=== PATIENT | female | born 1985 | race Caucasian/White ===

== ENCOUNTER 2017-05-27 11:52 | Emergency (ER) | payer OTHER ==
[2017-05-27 12:06] VITALS: BP 137/78
[2017-05-27] MEDS ORDERED: predniSONE TAB* 20 MG PO ONE (12:15)
--- NOTE | 2017-05-27 12:28 | UC ---
Throat Pain/Nasal Van HPI - HPI Summary HPI Summary: 32 yo female with sore throat and swollen glands x 1 day f/c and myalgias no n/v/d no true PCN allergy....states she gets yeast infections with augmentin - History of Current Complaint Chief Complaint: UCRespiratory Stated Complaint: SORE THROAT ACHY Time Seen by Provider: 05/27/17 12:04 Hx Obtained From: Patient Hx Last Menstrual Period: this month Onset/Duration: Gradual Onset, Lasting Hours Severity: Moderate Pain Intensity: 6 Pain Scale Used: 0-10 Numeric Cough: None - Epiglottits Risk Factors Epiglottis Risk Factors: Negative - Allergies/Home Medications Allergies/Adverse Reactions: Allergies Allergy/AdvReac Type Severity Reaction Status Date / Time Amoxicillin [From Augmentin] AdvReac yeast Verified 05/27/17 12:06 infection Clavulanic Acid AdvReac yeast Verified 05/27/17 12:06 [From Augmentin] infection PMH/Surg Hx/FS Hx/Imm Hx Previously Healthy: Yes - Surgical History Surgical History: Yes Surgery Procedure, Year, and Place: wisdom teeth - Family History Known Family History: Positive: Diabetes Negative: Cardiac Disease, Hypertension - Social History Alcohol Use: Occasionally Substance Use Type: None Smoking Status (MU): Never Smoked Tobacco - Immunization History Most Recent Influenza Vaccination: none Review of Systems Constitutional: Fever, Chills Skin: Negative Eyes: Negative ENT: Sore Throat Respiratory: Negative Cardiovascular: Negative Gastrointestinal: Negative Genitourinary: Negative Motor: Negative Neurovascular: Negative Musculoskeletal: Myalgia Neurological: Negative Psychological: Negative All Other Systems Reviewed And Are Negative: Yes Physical Exam Triage Information Reviewed: Yes Appearance: Well-Appearing, No Pain Distress, Well-Nourished Vital Signs: Initial Vital Signs Temp 97.9 F 05/27/17 11:59 Pulse 87 05/27/17 11:59 Resp 18 05/27/17 11:59 BP 137/78 05/27/17 11:59 Vital Signs Reviewed: Yes Eyes: Positive: Conjunctiva Clear ENT: Positive: Pharyngeal erythema, TMs normal, Tonsillar exudate. Negative: Hearing grossly normal, Nasal congestion, Nasal drainage, Trismus, Muffled/ hoarse voice Neck: Positive: Supple, Tenderness @ - ant cervical nodes, Enlarged Nodes @ Respiratory: Positive: Lungs clear, Normal breath sounds, No respiratory distress, No accessory muscle use Cardiovascular: Positive: RRR, No Murmur Neurological: Positive: Alert, Muscle Tone Normal Psychological Exam: Normal Skin Exam: Normal Skin: Positive: rashes Throat Pain/Nasal Course/Dx - Differential Dx/Diagnosis Provider Diagnoses: exudative tonsillitis Discharge - Discharge Plan Condition: Stable Disposition: HOME Prescriptions: Cephalexin CAP* [Keflex CAP*] 500 mg PO BID #20 cap Prednisone 60 mg PO DAILY #6 tab Patient Education Materials: Tonsillitis (ED) Forms: *Work Release Referrals: Sylvia Ortega MD [Medical Doctor] - Additional Instructions: your strep test was negative you need to get rechecked in 3 days if not better
== END 2017-05-27 12:46 | disposition home or self-care (01) ==
LOC: UCCORT 11:52
DX: J03.90 Acute tonsillitis, unspecified (principal); Z88.0 Allergy status to penicillin
CPT/HCPCS: 87651; 99212; G0463; J7512